=== PATIENT | female | born 1945 | race Caucasian/White ===

== ENCOUNTER → 2023-09-12 15:10 | Outpatient (REF) | payer OTHER, SELFPAY ==
[2023-09-12 15:42] LABS: % Basophils 0.6 % (0-2); % Eosinophils 5.4 % (0-6); % Immature Granulocytes 0.3 % (0-0.5); % Lymphocytes 19.1 % (20.5-51.1); % Monocytes 8.5 % (1.7-9.3); % Neutrophils 66.1 % (42.2-75.2); Absolute Basophils 0.1 10^3/uL (0-0.2); Absolute Eosinophils 0.6 10^3/uL (0-0.7); Absolute Monocytes 0.9 10^3/uL (0.1-0.6); Absolute Neutrophils 6.8 10^3/uL (1.4-6.5); Hematocrit 31.6 % (37.0-47.0); Hemoglobin 10.5 g/dL (12.0-16.0); Mean Corp Hgb Conc. 33.2 g/dL (33.0-37.0); Mean Corpuscular Hgb 29.1 pg (27.0-31.0); Mean Corpuscular Volume 87.5 fL (81.0-99.0); Mean Platelet Volume 10.2 fL (7.4-10.4); Nucleated Red Blood Cells % 0 %; Platelet Count 214 10^3/uL (130-400); Red Blood Cell Count 3.61 10^6/uL (4.20-5.40); Red Cell Dist. Width 13.6 % (11.5-14.5); White Blood Cell Count 10.3 10^3/uL (4.8-10.8)
[2023-09-12 15:49] LABS: Erythrocyte Sed Rate 49 mm/hour (0-20)
[2023-09-12 15:58] LABS: Uric Acid 8.5 mg/dl (2.5-6.2)
[2023-09-15 03:08] LABS: ANA, IgG Reflex to HEp-2 None Detected (None Detected)
[2023-09-16 16:48] LABS: Rheumatoid Agglutinin Less Than 10 IU (<10 IU)
[2023-09-16 18:10] LABS: Lyme Antibody Screen, EIA Negative (Negative)
== END ==
LOC: RAD 15:10
PROVIDERS: ATTENDING PHYSICIAN Family Medicine
DX: M79.672 Pain in left foot (principal)
CPT/HCPCS: 36415; 73630; 84550; 85025; 85652; 86038; 86140; 86430; 86618